=== PATIENT | female | born 1950 | race Caucasian/White ===

== ENCOUNTER 2016-11-24 16:27 | Inpatient (IN) | payer MEDICARE ==
[~2016-11-24] VITALS: Ht 157.5 cm; Wt 120.0 kg
[2016-11-24] VITALS (11 sets, daily range): BP systolic 156–199; BP diastolic 80–96; PULSE 98–116; RESP 20; TEMP 98.2–98.9; O2SAT 92–95
--- NOTE | 2016-11-24 16:39 | PD ---
HPI Chief Complaint: Respiratory Symptoms Time Seen by Provider: 16:39 Travel History International Travel<30 days: No Contact w/Intl Traveler<30days: No Traveled to known affect area: No History of Present Illness HPI Patient is a 66-year-old female with hx of asthma, who presents to emergency room complaints of cough, congestion and shortness of breath for the past 8 days. Patient reports that she came to [place] from [place] in the beginning of month, reports that for the past 8 days, she has noticed increased sinus congestion with postnasal drip and cough. Patient reports that her cough was initially dry, reports that now her cough is productive with thick green sputum. Patient reports that she follow-up in the outpatient clinic a few days ago and was started on Keflex, Medrol Dosepak as well as albuterol breathing treatments, reports that she has had no relief with these antibiotics. Patient went back to the clinic today, and x-ray test was obtained which showed a left lower lobe infiltrate. Patient was sent to the emergency room for further evaluation of symptoms. Of note, patient reports that a few other people at their condo are sick as well. Reports that they recently looks at the air filter and reports that it was caked in dust. Reports concern that this may have caused her asthma exacerbation. Patient with no fevers or chills at this time. Patient reports that when she coughs, her chest does hurt from coughing so much. Patient does have history of pulmonary embolism secondary to factor V Leiden disease, patient reports that she is on Coumadin, her INR at the end of October was 2.8. Patient with no other complaints at this time. PFSH Past Medical History Hx Anticoagulant Therapy: Yes (COUMADIN) Cardiovascular Problems: Yes (HTN) Respiratory: Yes (ASTHMA; HX PE) ?: Not Past Surgical History Gynecologic Surgery: Yes (tubal ligation) Other Surgery: Yes (ENT surgeries in the past) Family History Family History: Negative Social History Alcohol Use: No Tobacco Use: No Substance Use: No Allergies-Medications (Allergen,Severity, Reaction): Coded Allergies: Bactrim (Verified Allergy, Severe, SEVERE HIVES, 11/24/16) HMG-CoA Reductase Inhibitors (Verified Allergy, Severe, MUSCLE WEAKNESS, ) Niacin (Verified Allergy, Severe, HIVES, 11/24/16) Demerol (Verified Adverse Reaction, Intermediate, NAUSEA, 11/24/16) Reported Meds & Prescriptions Reported Meds & Active Scripts Active Reported Vitamin C 500-400 mg-Unit (Vitamins C & E) 1 Cap Cap 1 Cap PO BID Ventolin Hfa 18 GM Inh (Albuterol Sulfate) 90 Mcg/Act Aer 2 Puff INH Q4-6H PRN Advair Diskus Inh (Fluticasone-Salmeterol Inh) 100-50 Mcg/Blist Aer 1 Puff INH BID Rinse mouth after use. Montelukast (Montelukast Sodium) 10 Mg Tab 10 Mg PO HS Pantoprazole (Pantoprazole Sodium) 40 Mg Tab 40 Mg PO BID Warfarin 4 Mg Tab 4 Mg PO DAILY Sertraline (Sertraline HCl) 100 Mg Tab 100 Mg PO DAILY Amlodipine (Amlodipine Besylate) 5 Mg Tab 5 Mg PO DAILY Losartan (Losartan Potassium) 50 Mg Tab 50 Mg PO DAILY Duoneb (Ipratropium-Albuterol Neb) 0.5-2.5 Mg/3 Ml Neb 1 Nebule INH Q4HR NEB Benzonatate 200 Mg Cap 200 Mg PO TID PRN Medrol Dosepak (Methylprednisolone) 4 Mg Dspk 4 Mg PO DIRECTED Per Pharmacist direction Cefuroxime (Cefuroxime Axetil) 500 Mg Tab 500 Mg PO BID Review of Systems General / Constitutional: No: Fever, Chills Eyes: No: Visual changes HENT: No: Headaches Cardiovascular: No: Chest Pain or Discomfort, Palpitations, Irregular Rhythm Respiratory: Positive: Cough, Shortness of Breath, Wheezing Gastrointestinal: No: Nausea, Vomiting, Abdominal Pain Genitourinary: No: Dysuria Musculoskeletal: No: Pain Skin: No Rash Neurologic: No: Weakness, Dizziness Psychiatric: No: Depression Endocrine: No: Polydipsia Hematologic/Lymphatic: No: Easy Bruising Physical Exam Narrative GENERAL: Patient in moderate distress SKIN: Warm and dry. HEAD: Atraumatic. Normocephalic. EYES: No injection or drainage. ENT: No nasal bleeding or discharge. Mucous membranes pink and moist. NECK: Trachea midline. No JVD. CARDIOVASCULAR: Regular rate and rhythm. Positive 3/6 systolic murmur RESPIRATORY: No accessory muscle use. Patient with scattered wheezing to bilateral upper and lower lungs GASTROINTESTINAL: Abdomen soft, non-tender, nondistended. Hepatic and splenic margins not palpable. MUSCULOSKELETAL: No obvious deformities. No clubbing. No cyanosis. No edema. NEUROLOGICAL: Awake and alert. No obvious cranial nerve deficits. Motor grossly within normal limits. Normal speech. PSYCHIATRIC: Appropriate mood and affect; insight and judgment normal. Data Data Last Documented VS Vital Signs Date Time Temp Pulse Resp B/P Pulse Ox O2 Delivery O2 Flow Rate FiO2 11/24/16 18:14 104 20 95 Room Air 11/24/16 18:14 187/87 11/24/16 17:00 21 11/24/16 16:28 98.9 Orders Electrocardiogram (11/24/16 16:45) Complete Blood Count With Diff (11/24/16 16:45) Comprehensive Metabolic Panel (11/24/16 16:45) Influenzae A/B Antigen (11/24/16 16:45) Urinalysis - C+S If Indicated (11/24/16 16:45) Blood Culture (11/24/16 16:45) Chest, Single Ap (11/24/16 16:45) Ecg Monitoring (11/24/16 16:45) Iv Access Insert/Monitor (11/24/16 16:45) Oximetry (11/24/16 16:45) Albuterol-Ipratropium Neb (Duoneb Neb) (11/24/16 16:45) Methylprednisolone So Succ Inj (Solumedr (11/24/16 16:45) Guaifen-Cod 200-20 Mg/10ml Liq (Robituss (11/24/16 16:45) Sodium Chlor 0.9% 1000 Ml Inj (Ns 1000 M (11/24/16 16:45) Prothrombin Time / Inr (Pt) (11/24/16 16:47) Act Partial Throm Time (Ptt) (11/24/16 16:47) Ct Pulmonary Angiogram (11/24/16 17:43) Ceftriaxone Inj (Rocephin Inj) (11/24/16 17:45) Azithromycin Inj (Zithromax Inj) (11/24/16 17:45) Albuterol Neb (Albuterol Neb) (11/24/16 18:00) Acetaminophen (Tylenol) (11/24/16 18:15) Iohexol 350 Inj (Omnipaque 350 Inj) (11/24/16 18:30) Magnesium Sulfate 1 Gm Premix (Magnesium (11/24/16 19:15) Hydralazine Inj (Apresoline Inj) (11/24/16 19:30) Labs Laboratory Tests Test 11/24/16 17:00 White Blood Count 19.5 TH/MM3 Red Blood Count 4.47 MIL/MM3 Hemoglobin 12.6 GM/DL Hematocrit 37.9 % Mean Corpuscular Volume 84.7 FL Mean Corpuscular Hemoglobin 28.2 PG Mean Corpuscular Hemoglobin 33.3 % Concent Red Cell Distribution Width 12.9 % Platelet Count 366 TH/MM3 Mean Platelet Volume 7.4 FL Neutrophils (%) (Auto) 90.5 % Lymphocytes (%) (Auto) 5.7 % Monocytes (%) (Auto) 3.5 % Eosinophils (%) (Auto) 0.0 % Basophils (%) (Auto) 0.3 % Neutrophils # (Auto) 17.6 TH/MM3 Lymphocytes # (Auto) 1.1 TH/MM3 Monocytes # (Auto) 0.7 TH/MM3 Eosinophils # (Auto) 0.0 TH/MM3 Basophils # (Auto) 0.1 TH/MM3 CBC Comment AUTO DIFF Differential Total Cells 100 Counted Neutrophils % (Manual) 69 % Band Neutrophils % 20 % Lymphocytes % 7 % Monocytes % 3 % Basophils % 1 % Neutrophils # (Manual) 17.4 TH/MM3 Differential Comment FINAL DIFF MANUAL Platelet Estimate NORMAL Platelet Morphology Comment NORMAL Red Cell Morphology Comment NORMAL Prothrombin Time 23.4 SEC Prothromb Time International 2.1 RATIO Ratio Activated Partial 42.9 SEC Thromboplast Time Sodium Level 142 MEQ/L Potassium Level 4.0 MEQ/L Chloride Level 106 MEQ/L Carbon Dioxide Level 27.2 MEQ/L Anion Gap 9 MEQ/L Blood Urea Nitrogen 11 MG/DL Creatinine 0.93 MG/DL Estimat Glomerular Filtration 60 ML/MIN Rate Random Glucose 124 MG/DL Calcium Level 8.8 MG/DL Total Bilirubin 0.6 MG/DL Aspartate Amino Transf 36 U/L (AST/SGOT) Alanine Aminotransferase 45 U/L (ALT/SGPT) Alkaline Phosphatase 90 U/L Total Protein 8.0 GM/DL Albumin 3.5 GM/DL MDM Medical Decision Making Medical Screen Exam Complete: Yes Emergency Medical Condition: Yes Interpretation(s) EKG at 1637: Sinus tachycardia at 102 bpm, QT/QTc 318/391, nonspecific t wave changes Vital Signs Date Time Temp Pulse Resp B/P Pulse Ox O2 Delivery O2 Flow Rate FiO2 11/24/16 16:44 103 20 94 Room Air 11/24/16 16:28 98.9 98 20 156/96 94 CBC & BMP Diagram 11/24/16 17:00 Differential Diagnosis Asthma exacerbation, pneumonia, influenza, pneumothorax, PE Narrative Course Patient is a 66-year-old female who presents to emergency room with complaints of 8 days of cough, congestion, reports that she has been on Keflex since as well as Medrol Dosepak, reports no relief of symptoms. Patient did follow-up with the clinic today and it was noted the patient did have a left lower lobe pneumonia, patient was instructed to come to emergency for evaluation. Patient was placed on senior account clerk upon arrival to emergency room. EKG obtained. Patient is mildly tachycardia with heart rate at 103. Patient is wheezing and coughing exam. Plan to place IV, CBC, CMP, x-ray of the chest as well as influenza ordered for patient. Patient was ordered IV steroids as well as neb treatments and a dose of Robitussin for symptomatic relief. CBC & BMP Diagram 11/24/16 17:[address] angiogram: 1. very prominent pulmonary arteries centrally suggesting pulmonary hypertension 2. Minimal patchy areas disease both lungs 3. There is no evidence of central pulmonary emboli Patient reevaluated, patient feeling "the same." Patient with continued wheezing on exam despite 6 neb treatments. Patient will require observation at this time case reviewed with Dr Peña who accepts pt to service for obs Diagnosis Primary Impression: Asthma with acute exacerbation Qualified Code: J45.41 - Moderate persistent asthma with acute exacerbation Admitting Information Admitting Physician Requests: Observation Twila Lopez DO Nov 24, 2016 16:39
[2016-11-24] MEDS ORDERED: CEFU1TAB20 PO (16:43)
[2016-11-24] MEDS ORDERED: IPRASOL INH (16:43)
[2016-11-24] MEDS ORDERED: MEDR4PAK PO (16:43)
[2016-11-24] MEDS ORDERED: BENZ1CAP34 PO (16:43)
[2016-11-24] MEDS ORDERED: ALBU0.63 NEB (16:43)
[2016-11-24] MEDS ORDERED: guaiFENesin/CODEINE SYRUP 200 MG/20 MG/10 ML CUP PO ONE (16:45)
[2016-11-24] MEDS ORDERED: methylPREDNISolone SOD SUCC 125 MG/2 ML VIAL IV ONE (16:45)
[2016-11-24] MEDS ORDERED: SODIUM CHLOR 0.9% 1000 ML INJ 1,000 ML IV ONE (16:45)
[2016-11-24] MEDS ORDERED: VITACAP32 PO (16:51)
[2016-11-24] MEDS ORDERED: WARF-20 PO (16:51)
[2016-11-24] MEDS ORDERED: VENTAER INH (16:51)
[2016-11-24] MEDS ORDERED: MONT10TA4 PO (16:51)
[2016-11-24] MEDS ORDERED: AMLO5TAB2 PO (16:51)
[2016-11-24] MEDS ORDERED: SERT-129 PO (16:51)
[2016-11-24] MEDS ORDERED: PANT40TA3 PO (16:51)
[2016-11-24] MEDS ORDERED: LOSA50TA PO (16:51)
[2016-11-24] MEDS ORDERED: ADVA100A INH (16:51)
[2016-11-24] MEDS: RESP: ALBUTEROL 2.5 MG/IPRATROPIUM 0.5 MG NEB (SCH) INH ×3 (16:58→17:04)
[2016-11-24 17:11] LABS: AUTOMATED NEUTROPHIL # 17.6 TH/MM3 (1.8-7.7); BASOPHIL # 0.1 TH/MM3 (0-0.2); BASOPHIL % 0.3 % (0.0-2.0); HEMATOCRIT 37.9 % (35.0-46.0); LYMPH % 5.7 % (9.0-44.0); LYMPHOCYTE # 1.1 TH/MM3 (1.0-4.8); MEAN CELL VOLUME 84.7 FL (80.0-100.0); MEAN CORPUSCULAR HEMOGLOBIN 28.2 PG (27.0-34.0); MEAN CORPUSCULAR HGB CONC 33.3 % (32.0-36.0); MONO % 3.5 % (0.0-8.0); NEUT % 90.5 % (16.0-70.0); PLATELET COUNT 366 TH/MM3 (150-450); RED BLOOD COUNT 4.47 MIL/MM3 (4.00-5.30); RED CELL DISTRIBUTION WIDTH 12.9 % (11.6-17.2); WHITE BLOOD COUNT 19.5 TH/MM3 (4.0-11.0)
--- NOTE | 2016-11-24 17:11 | RADHPO ---
EXAM DATE/TIME: 11/24/2016 16:52 [facility] COMPARISON: No previous studies available for comparison. INDICATIONS : Cough and congestion for eight days. MEDICAL HISTORY : Hypertension. SURGICAL HISTORY : None. ENCOUNTER: Initial ACUITY: 1 week PAIN SCORE: 0/10 LOCATION: Bilateral chest FINDINGS: A single view of the chest demonstrates the lungs to be symmetrically aerated without evidence of mas s, infiltrate or effusion. The cardiomediastinal contours are unremarkable. Osseous structures are intact. CONCLUSION: No acute disease. Jc Alberts MD FACR on November 24, 2016 at 17:09 Board Certified Radiologist. This report was verified electronically.
[2016-11-24 17:21] LABS: CHLORIDE 106 MEQ/L (98-107); SODIUM (NA) 142 MEQ/L (136-145)
[2016-11-24 17:24] LABS: ANION GAP 9 MEQ/L (5-15); BICARBONATE 27.2 MEQ/L (21.0-32.0); HEMO FLAGS AUTO DIFF
[2016-11-24 17:25] LABS: BLOOD UREA NITROGEN 11 MG/DL (7-18)
[2016-11-24 17:27] LABS: ALT (GPT) 45 U/L (10-53); APTT (PATIENT) 42.9 SEC (24.3-30.1); INTERNATIONAL NORMALIZED RATIO 2.1 RATIO; PROTHROMBIN TIME - PATIENT 23.4 SEC (9.8-11.6)
[2016-11-24 17:28] LABS: AST (GOT) 36 U/L (15-37); GLOMERULAR FILTRATION RATE 60 ML/MIN (>89)
[2016-11-24 17:29] LABS: TOTAL BILIRUBIN ADULT 0.6 MG/DL (0.2-1.0)
[2016-11-24 17:30] LABS: ALKALINE PHOSPHATASE 90 U/L (45-117)
[2016-11-24 17:41] LABS: BANDS 20 % (0-6); BASOPHILS 1 % (0-2); NEUTROPHIL # MANUAL DIFF 17.4 TH/MM3 (1.8-7.7); PLATELET ESTIMATE SMEAR NORMAL (NORMAL); PLATELET MORPHOLOGY NORMAL (NORMAL); POLYS (SEG NEUTROPHILS) 69 % (16-70); SCAN/DIFF FINAL DIFF MANUAL; WBC DIFF SAMPLE 100
[2016-11-24] MEDS ORDERED: cefTRIAXone INJ 1,000 MG in SODIUM CHLORIDE 0.9% INJ 100 ML IV ONE (17:45)
[2016-11-24] MEDS ORDERED: AZITHROMYCIN INJ 500 MG in SODIUM CHLOR 0.9% 250 ML INJ 250 ML IV ONE (17:45)
[2016-11-24] MEDS: RESP: ALBUTEROL 2.5 MG/3 ML NEB (SCH) INH ×2 (18:00→18:18)
[2016-11-24] MEDS ORDERED: ACETAMINOPHEN 325 MG TAB PO ONE (18:15)
[2016-11-24] MEDS ORDERED: IOHEXOL 350 MG/ML 10 ML VIAL (for RAD DIAG) IV ONE (18:30)
--- NOTE | 2016-11-24 18:43 | RADHPO ---
EXAM DATE/TIME: 11/24/2016 18:22 [facility] COMPARISON: No previous studies available for comparison. INDICATIONS : Shortness of breath today. IV CONTRAST: 74 cc Omnipaque 350 (iohexol) IV RADIATION DOSE: 21.42 CTDIvol (mGy) MEDICAL HISTORY : Chronic obstructive pulmonary disease. Hypertension. SURGICAL HISTORY : Tubal ligation. ENCOUNTER: Initial ACUITY: 1 day PAIN SCALE: 0/10 LOCATION: Bilateral chest TECHNIQUE: Volumetric scanning of the chest was performed using a pulmonary embolism protocol MIP images were re constructed. Using automated exposure control and adjustment of the mA and/or kV according to patien t size, radiation dose was kept as low as reasonably achievable to obtain optimal diagnostic quality images. FINDINGS: Patchy air space disease is seen in both the right and left lung. There is no axillary adenopathy. There is no mediastinal adenopathy. There is no evidence of centra l pulmonary emboli. The heart is minimally enlarged. Pulmonary arteries are enlarged centrally suggesting pulmonary zack ry hypertension. Portion of liver and spleen identified are free of focal defects. CONCLUSION: 1. Very prominent pulmonary arteries centrally suggesting pulmonary hypertension. 2. Minimal patchy air space disease in both lungs. Jc Alberts MD FACR on November 24, 2016 at 18:38 Board Certified Radiologist. This report was verified electronically.
[2016-11-24] MEDS ORDERED: ONDANSETRON HCL 4 MG/2 ML VIAL IVP PRN (19:15)
[2016-11-24] MEDS ORDERED: ACETAMINOPHEN 325 MG TAB PO PRN (19:15)
[2016-11-24] MEDS ORDERED: MAGNESIUM SULFATE 1 GM PREMIX 100 ML IV ONE (19:15)
[2016-11-24] MEDS ORDERED: BISACODYL 10 MG SUPP PR PRN (19:15)
[2016-11-24] MEDS ORDERED: hydrALAZINE HCL 20 MG/ML VIAL IV PUSH ONE (19:30)
[2016-11-24] MEDS: BUDESONIDE-FORMOTEROL 160/4.5 MCG INHALER INH SCH (20:58)
[2016-11-24] MEDS: PANTOPRAZOLE SOD 40 MG DELAYED RELEASE TAB PO SCH (20:59)
[2016-11-24] MEDS: SODIUM CHLORIDE 0.9% FLUSH 5 ML FLUSH FLUSH SCH (20:59)
[2016-11-24] MEDS: MONTELUKAST SODIUM 10 MG TAB PO SCH (20:59)
[2016-11-24] MEDS: RESP: ALBUTEROL 2.5 MG/IPRATROPIUM 0.5 MG NEB (SCH) NEB (21:04)
[2016-11-24] MEDS ORDERED: WARFARIN SOD 4 MG TAB PO ONE (21:15)
[2016-11-24] MEDS: guaiFENesin E.R. 600 MG TAB PO SCH (21:23)
[2016-11-24 22:47] LABS: BLOOD, URINE SMALL (NEG); GLUCOSE,URINE NEG (NEG); KETONE, URINE NEG (NEG); NITRITE,URINE NEG (NEG)
[2016-11-24 22:52] LABS: METHOD OF COLLECTION CLEAN CATCH; URINE COLOR STRAW (YELLW/STRAW)
[2016-11-24 22:55] LABS: RBC, URINE 0-3 /hpf (0-3); SQUAMOUS EPITHELIAL CELL URINE 0-2 /hpf (0-5); WBC, URINE 0-2 /hpf (0-5)
[2016-11-24 22:56] LABS: COMMENT (UR) CULT NOT INDICATED; CULTURE IF INDICATED CULT NOT INDICATED
[2016-11-25] VITALS (8 sets, daily range): BP systolic 122–168; BP diastolic 80–88; PULSE 94–109; RESP 18–24; TEMP 96.7–99; O2SAT 91–95
[2016-11-25] MEDS: methylPREDNISolone SOD SUCC 40 MG/1 ML VIAL IV PUSH SCH ×4 (00:12→18:26)
[2016-11-25] MEDS: SODIUM CHLORIDE 0.9% FLUSH 5 ML FLUSH FLUSH PRN ×2 (00:12→06:30)
[2016-11-25] MEDS: BENZONATATE 100 MG CAP PO PRN ×2 (00:17→21:30)
[2016-11-25] MEDS: ACETAMINOPHEN/HYDROcodone 325 MG/5 MG TAB PO PRN (05:00)
[2016-11-25] MEDS: RESP: ALBUTEROL 2.5 MG/IPRATROPIUM 0.5 MG NEB (SCH) NEB ×4 (07:32→20:15)
[2016-11-25] MEDS ORDERED: WARFARIN SOD 4 MG TAB PO SCH ×2 (09:00→16:00)
[2016-11-25 09:24] LABS: BASOPHIL % 0.1 % (0.0-2.0); EOSINOPHIL % 0.1 % (0.0-4.0); HEMATOCRIT 35.6 % (35.0-46.0); LYMPH % 5.9 % (9.0-44.0); LYMPHOCYTE # 1.2 TH/MM3 (1.0-4.8); MEAN CELL VOLUME 85.1 FL (80.0-100.0); MEAN CORPUSCULAR HEMOGLOBIN 29.1 PG (27.0-34.0); MEAN CORPUSCULAR HGB CONC 34.2 % (32.0-36.0); MONO % 2.3 % (0.0-8.0); NEUT % 91.6 % (16.0-70.0); PLATELET COUNT 330 TH/MM3 (150-450); RED BLOOD COUNT 4.18 MIL/MM3 (4.00-5.30); RED CELL DISTRIBUTION WIDTH 12.9 % (11.6-17.2); WHITE BLOOD COUNT 19.7 TH/MM3 (4.0-11.0)
[2016-11-25 09:37] LABS: HEMO FLAGS AUTO DIFF
[2016-11-25 09:39] LABS: PROTHROMBIN TIME - PATIENT 22.2 SEC (9.8-11.6)
[2016-11-25] MEDS: PANTOPRAZOLE SOD 40 MG DELAYED RELEASE TAB PO SCH ×2 (10:02→21:01)
[2016-11-25] MEDS: amLODIPine BESYLATE 5 MG TAB PO SCH (10:02)
[2016-11-25] MEDS: LOSARTAN 50 MG TAB PO SCH (10:02)
[2016-11-25] MEDS: SERTRALINE HCL 100 MG TAB PO SCH (10:02)
[2016-11-25] MEDS: BUDESONIDE-FORMOTEROL 160/4.5 MCG INHALER INH SCH ×2 (10:02→21:01)
[2016-11-25] MEDS: guaiFENesin E.R. 600 MG TAB PO SCH ×2 (10:02→21:01)
[2016-11-25] MEDS: SODIUM CHLORIDE 0.9% FLUSH 5 ML FLUSH FLUSH SCH ×2 (10:02→21:00)
[2016-11-25 10:04] LABS: CHLORIDE 105 MEQ/L (98-107); POTASSIUM 3.9 MEQ/L (3.5-5.1); SODIUM (NA) 143 MEQ/L (136-145)
[2016-11-25] MEDS: ACETAMINOPHEN/HYDROcodone 325 MG/10 MG TAB PO PRN (10:04)
[2016-11-25 10:08] LABS: ANION GAP 11 MEQ/L (5-15); BICARBONATE 27.2 MEQ/L (21.0-32.0); BLOOD UREA NITROGEN 13 MG/DL (7-18)
[2016-11-25 10:11] LABS: ALT (GPT) 43 U/L (10-53); GLOMERULAR FILTRATION RATE 67 ML/MIN (>89)
[2016-11-25 10:12] LABS: AST (GOT) 34 U/L (15-37); TOTAL BILIRUBIN ADULT 0.4 MG/DL (0.2-1.0)
[2016-11-25 10:14] LABS: ALKALINE PHOSPHATASE 87 U/L (45-117)
[2016-11-25 10:24] LABS: BANDS 13 % (0-6); NEUTROPHIL # MANUAL DIFF 18.5 TH/MM3 (1.8-7.7); POLYS (SEG NEUTROPHILS) 81 % (16-70); WBC DIFF SAMPLE 100
[2016-11-25 10:25] LABS: PLATELET ESTIMATE SMEAR NORMAL (NORMAL); PLATELET MORPHOLOGY NORMAL (NORMAL); SCAN/DIFF FINAL DIFF MANUAL
--- NOTE | 2016-11-25 13:28 | EKG ---
Date Performed: 11/24/2016 Time Performed: 16:37:54 PTAGE: 66 years EKG: Sinus tachycardia Inferior and anterior T wave changes are nonspecific Borderline ECG NO PREVIOUS TRACING DOCTOR: Asher Alves Interpretating Date/Time 11/25/2016 13:27:29
--- NOTE | 2016-11-25 15:08 | HHI.HP ---
[facility]Staff Admission Diagnosis Asthma exacerbation Diagnoses: Chief Complaint: Short of breath Travel History International Travel<30 Days: No Contact w/Intl Traveler <30 Da: No Traveled to Known Affected Are: No History of Present Illness Patient is a 66-year-old female with a history of asthma and recurrent bronchitis who came to the emergency room after about 8 days of increasing dyspnea on exertion and shortness of breath and productive cough. Patient was seen in outpatient urgent care a few days ago and given cefuroxime, steroids and nebulizer treatments. Patient noted that she continued to get worse and came to the emergency room for the same. The patient was given IV antibiotics as well as bronchodilators and felt better. Chest x-ray was done and does show some bilateral patchy although worse on the left side infiltrates concerning for pneumonia on my review. For these reasons the patient has been recommended for admission Review of Systems Constitutional: DENIES: Diaphoretic episodes, Fatigue, Fever, Weight gain, Weight loss, Chills, Dizziness, Change in appetite, Night Sweats Endocrine: DENIES: Abnorml menstrual pattern, Heat/cold intolerance, Polydipsia , Polyuria, Polyphagia Eyes: DENIES: Blurred vision, Diplopia, Eye inflammation, Eye pain, Vision loss , Photosensitivity, Double Vision Ears, nose, mouth, throat: DENIES: Tinnitus, Hearing loss, Vertigo, Nasal discharge, Oral lesions, Throat pain, Hoarseness, Ear Pain, Running Nose, Epistaxis, Sinus Pain, Toothache, Odynophagia Respiratory: COMPLAINS OF: Wheezing, Shortness of breath, DENIES: Apneas, Cough, Snoring, Hemoptysis, Sputum production Cardiovascular: COMPLAINS OF: Dyspnea on Exertion, DENIES: Chest pain, Palpitations, Syncope, PND, Lower Extremity Edema, Orthopnea, Claudication Gastrointestinal: DENIES: Abdominal pain, Black stools, Bloody stools, Constipation, Diarrhea, Nausea, Vomiting, Difficulty Swallowing, Anorexia Genitourinary: DENIES: Abnormal vaginal bleeding, Dysmenorrhea, Dyspareunia, Sexual dysfunction, Urinary frequency, Urinary incontinence, Urgency, Hematuria , Dysuria, Nocturia, Vaginal discharge Musculoskeletal: DENIES: Joint pain, Muscle aches, Stiffness, Joint Swelling, Back pain, Neck pain Integumentary: DENIES: Abnormal pigmentation, Pruritus, Rash, Nail changes, Breast masses, Breast skin changes, Nipple discharge Hematologic/lymphatic: DENIES: Bruising, Lymphadenopathy Immunologic/allergic: DENIES: Eczema, Urticaria Neurologic: DENIES: Abnormal gait, Headache, Localized weakness, Paresthesias, Seizures, Speech Problems, Tremor, Poor Balance Psychiatric: DENIES: Anxiety, Confusion, Mood changes, Depression, Hallucinations, Agitation, Suicidal Ideation, Homicidal Ideation, Delusions Past Family Social History Past Medical History Bronchitis Recurrent embolism Hypertension Past Surgical History Tubal ligation Ear Nose and throat surgeries Reported Medications Reviewed and the medical record, was given cefuroxime mean an urgent care on Allergies: Coded Allergies: Bactrim (Verified Allergy, Severe, SEVERE HIVES, 11/24/16) HMG-CoA Reductase Inhibitors (Verified Allergy, Severe, MUSCLE WEAKNESS, ) Niacin (Verified Allergy, Severe, HIVES, 11/24/16) Demerol (Verified Adverse Reaction, Intermediate, NAUSEA, 11/24/16) Active Ordered Medications Reviewed in the medical record Family History Both of her parents had been smokers, mother from lung cancer, sister has breast cancer Social History Never had any tobaccoism, no alcohol, visiting from [place], multiple sick contacts in her current condo Physical Exam Vital Signs Vital Signs Date Time Temp Pulse Resp B/P Pulse Ox O2 Delivery O2 Flow Rate FiO2 11/25/16 12:00 99.0 99 20 149/81 92 11/25/16 11:41 18 11/25/16 08:00 96.7 94 18 168/88 94 11/25/16 07:34 91 21 11/25/16 05:04 98.9 94 24 153/80 92 11/25/16 01:26 98.3 109 24 152/88 92 11/25/16 01:00 103 11/25/16 00:00 92 Room Air 11/24/16 22:45 98.2 108 20 175/81 94 Room Air 11/24/16 21:04 92 21 11/24/16 21:00 108 20 171/90 94 Room Air 11/24/16 20:04 113 20 176/80 94 Room Air 11/24/16 19:48 114 20 196/85 93 Room Air 11/24/16 19:21 116 20 199/87 94 Room Air 11/24/16 19:05 113 20 94 Room Air 11/24/16 19:05 98.2 113 20 199/93 94 Room Air 11/24/16 18:14 104 20 95 Room Air 11/24/16 18:14 104 20 187/87 95 Room Air 11/24/16 17:11 99 20 177/83 93 Room Air 11/24/16 17:00 92 21 11/24/16 16:44 103 20 94 Room Air 11/24/16 16:28 98.9 98 20 156/96 94 Physical Exam GENERAL: This is a well-nourished, well-developed patient, in no apparent distress. SKIN: No rashes, ecchymoses or lesions. Cool and dry. HEAD: Atraumatic. Normocephalic. No temporal or scalp tenderness. EYES: Pupils equal round and reactive. Extraocular motions intact. No scleral icterus. No injection or drainage. ENT: Nose without bleeding, purulent drainage or septal hematoma. Throat without erythema, tonsillar hypertrophy or exudate. Uvula midline. Airway patent. NECK: Trachea midline. No JVD or lymphadenopathy. Supple, nontender, no meningeal signs. CARDIOVASCULAR: Regular rate and rhythm without murmurs, gallops, or rubs. RESPIRATORY: Decreased breath sounds bilaterally, no appreciable wheezes or rhonchi GASTROINTESTINAL: Abdomen soft, non-tender, nondistended. No hepato-splenomegaly , or palpable masses. No guarding. MUSCULOSKELETAL: Extremities without clubbing, cyanosis, or edema. No joint tenderness, effusion, or edema noted. No calf tenderness. Negative Homans sign bilaterally. NEUROLOGICAL: Awake and alert. Cranial nerves II through XII intact. Motor and sensory grossly within normal limits. Five out of 5 muscle strength in all muscle groups. Normal speech. Laboratory Laboratory Tests Test 11/24/16 11/24/16 11/25/16 17:00 22:32 08:21 White Blood Count 19.5 19.7 Red Blood Count 4.47 4.18 Hemoglobin 12.6 12.2 Hematocrit 37.9 35.6 Mean Corpuscular Volume 84.7 85.1 Mean Corpuscular Hemoglobin 28.2 29.1 Mean Corpuscular Hemoglobin 33.3 34.2 Concent Red Cell Distribution Width 12.9 12.9 Platelet Count 366 330 Mean Platelet Volume 7.4 8.0 Neutrophils (%) (Auto) 90.5 91.6 Lymphocytes (%) (Auto) 5.7 5.9 Monocytes (%) (Auto) 3.5 2.3 Eosinophils (%) (Auto) 0.0 0.1 Basophils (%) (Auto) 0.3 0.1 Neutrophils # (Auto) 17.6 18.0 Lymphocytes # (Auto) 1.1 1.2 Monocytes # (Auto) 0.7 0.5 Eosinophils # (Auto) 0.0 0.0 Basophils # (Auto) 0.1 0.0 CBC Comment AUTO DIFF AUTO DIFF Differential Total Cells 100 100 Counted Neutrophils % (Manual) 69 81 Band Neutrophils % 20 13 Lymphocytes % 7 5 Monocytes % 3 1 Basophils % 1 Neutrophils # (Manual) 17.4 18.5 Differential Comment FINAL DIFF FINAL DIFF MANUAL MANUAL Platelet Estimate NORMAL NORMAL Platelet Morphology Comment NORMAL NORMAL Red Cell Morphology Comment NORMAL Prothrombin Time 23.4 22.2 Prothromb Time International 2.1 2.0 Ratio Activated Partial 42.9 Thromboplast Time Sodium Level 142 143 Potassium Level 4.0 3.9 Chloride Level 106 105 Carbon Dioxide Level 27.2 27.2 Anion Gap 9 11 Blood Urea Nitrogen 11 13 Creatinine 0.93 0.85 Estimat Glomerular Filtration 60 67 Rate Random Glucose 124 144 Calcium Level 8.8 8.9 Total Bilirubin 0.6 0.4 Aspartate Amino Transf 36 34 (AST/SGOT) Alanine Aminotransferase 45 43 (ALT/SGPT) Alkaline Phosphatase 90 87 Total Protein 8.0 7.8 Albumin 3.5 3.3 Urine Collection Type CLEAN CATCH Urine Color STRAW Urine Turbidity CLEAR Urine pH 6.0 Urine Specific [place] 1.024 Urine Protein NEG Urine Glucose (UA) NEG Urine Ketones NEG Urine Occult Blood SMALL Urine Nitrite NEG Urine Bilirubin NEG Urine Leukocyte Esterase NEG Urine RBC 0-3 Urine WBC 0-2 Urine Squamous Epithelial 0-2 Cells Microscopic Urinalysis Comment CULT NOT INDICATED Basophilic Stippling FAINT Date/Time Procedure Status Source Growth 11/24/16 17:05 Aerobic Blood Culture - Preliminary Resulted Blood Peripheral NO GROWTH IN 1 DAY 11/24/16 17:05 Anaerobic Blood Culture - Preliminary Resulted Blood Peripheral NO GROWTH IN 1 DAY 11/24/16 17:04 Influenza Types A,B Antigen (RUBÉN) - Final Complete Nasal Washing NEGATIVE FOR FLU A AND B ANTIGEN.... Result Diagram: 11/25/16 0821 11/25/16 [address] Angiography 11/24/16 1743 Signed Impressions: Service Date/Time: Thursday, November 24, 2016 18:22 - CONCLUSION: 1. Very prominent pulmonary arteries centrally suggesting pulmonary hypertension. 2. Minimal patchy air space disease in both lungs. Jc Alberts MD FACR Chest X-Ray 11/24/16 1645 Signed Impressions: Service Date/Time: Thursday, November 24, 2016 16:52 - CONCLUSION: No acute disease. Jc Alberts MD FACR Assessment and Plan Problem List: (1) Asthma with acute exacerbation ICD Code: J45.901 Status: Acute Plan: With failed outpatient therapy need for IV antibiotics and IV steroids We'll continue with bronchodilators, steroids. Continue with IV antibiotics with pneumonia on exam and clinically. Continue with close observation (2) History of pulmonary embolus (PE) ICD Code: Z86.711 Status: Acute Plan: Patient has been Coumadin due to hypercoagulable syndrome. Her goals for INR have been 2.5 per her primary care doctor. We'll give 5 mg of warfarin tonight Discussed Condition With Patient Physician Certification 2 Midnight Certification Type: Admission for Inpatient Services Order for Inpatient Services The services are ordered in accordance with Medicare regulations or non- Medicare payer requirements, as applicable. In the case of services not specified as inpatient-only, they are appropriately provided as inpatient services in accordance with the 2-midnight benchmark. Estimated LOS (days): 3 3 days is the estimated time the patient will need to remain in the hospital, assuming treatment plan goals are met and no additional complications. Post-Hospital Plan: Home (3) Problem Qualifiers (1) Asthma with acute exacerbation: Qualified Code: J45.41 - Moderate persistent asthma with acute exacerbation Laura Agudelo MD Nov 25, 2016 15:08
[2016-11-25] MEDS ORDERED: WARFARIN SOD 5 MG TAB PO SCH (16:00)
[2016-11-25] MEDS: AZITHROMYCIN INJ 500 MG in SODIUM CHLOR 0.9% 250 ML INJ 250 ML IV SCH (17:21)
[2016-11-25] MEDS: cefTRIAXone INJ 1,000 MG in SODIUM CHLORIDE 0.9% INJ 100 ML IV SCH (17:22)
[2016-11-25] MEDS: MONTELUKAST SODIUM 10 MG TAB PO SCH (21:01)
[2016-11-26] VITALS (8 sets, daily range): BP systolic 139–164; BP diastolic 87–100; PULSE 83–94; RESP 18–24; TEMP 96.8–98.3; O2SAT 92–96
[2016-11-26] MEDS: methylPREDNISolone SOD SUCC 40 MG/1 ML VIAL IV PUSH SCH ×2 (00:59→06:35)
[2016-11-26] MEDS: ACETAMINOPHEN/HYDROcodone 325 MG/10 MG TAB PO PRN ×2 (02:58→23:22)
[2016-11-26] MEDS: RESP: ALBUTEROL 2.5 MG/IPRATROPIUM 0.5 MG NEB (PRN) NEB ×2 (02:59→23:35)
[2016-11-26] MEDS: RESP: ALBUTEROL 2.5 MG/IPRATROPIUM 0.5 MG NEB (SCH) NEB ×4 (08:10→20:01)
[2016-11-26 08:27] LABS: AUTOMATED NEUTROPHIL # 20.6 TH/MM3 (1.8-7.7); BASOPHIL % 0.1 % (0.0-2.0); EOSINOPHIL # 0.2 TH/MM3 (0-0.4); EOSINOPHIL % 0.8 % (0.0-4.0); HEMATOCRIT 36.7 % (35.0-46.0); LYMPH % 6.7 % (9.0-44.0); LYMPHOCYTE # 1.5 TH/MM3 (1.0-4.8); MEAN CELL VOLUME 86.8 FL (80.0-100.0); MEAN CORPUSCULAR HEMOGLOBIN 28.7 PG (27.0-34.0); MONO % 3.3 % (0.0-8.0); NEUT % 89.1 % (16.0-70.0); PLATELET COUNT 363 TH/MM3 (150-450); RED BLOOD COUNT 4.22 MIL/MM3 (4.00-5.30); RED CELL DISTRIBUTION WIDTH 13.5 % (11.6-17.2); WHITE BLOOD COUNT 23.1 TH/MM3 (4.0-11.0)
[2016-11-26 08:32] LABS: HEMO FLAGS AUTO DIFF
[2016-11-26 09:07] LABS: BANDS 11 % (0-6); METAMYELOCYTES 2 % (0-1); POLYS (SEG NEUTROPHILS) 78 % (16-70); WBC DIFF SAMPLE 100
[2016-11-26 09:08] LABS: PLATELET ESTIMATE SMEAR NORMAL (NORMAL); PLATELET MORPHOLOGY NORMAL (NORMAL); SCAN/DIFF FINAL DIFF MANUAL
[2016-11-26] MEDS: LOSARTAN 50 MG TAB PO SCH (09:47)
[2016-11-26] MEDS: guaiFENesin E.R. 600 MG TAB PO SCH ×2 (09:47→20:29)
[2016-11-26] MEDS: PANTOPRAZOLE SOD 40 MG DELAYED RELEASE TAB PO SCH ×2 (09:47→20:29)
[2016-11-26] MEDS: amLODIPine BESYLATE 5 MG TAB PO SCH (09:47)
[2016-11-26] MEDS: SERTRALINE HCL 100 MG TAB PO SCH (09:48)
[2016-11-26] MEDS: predniSONE 20 MG TAB PO SCH ×2 (09:48→20:29)
[2016-11-26] MEDS: BUDESONIDE-FORMOTEROL 160/4.5 MCG INHALER INH SCH ×2 (09:48→20:30)
[2016-11-26] MEDS: SODIUM CHLORIDE 0.9% FLUSH 5 ML FLUSH FLUSH SCH ×2 (09:50→20:29)
[2016-11-26] MEDS: ACETAMINOPHEN/HYDROcodone 325 MG/5 MG TAB PO PRN (09:56)
[2016-11-26 10:50] LABS: INTERNATIONAL NORMALIZED RATIO 2.5 RATIO; PROTHROMBIN TIME - PATIENT 28.7 SEC (9.8-11.6)
--- NOTE | 2016-11-26 10:55 | HHI.PR ---
Subjective Remarks Patient seen and evaluated today for acute asthma exacerbation. Still working hard to breathe today. Patient without chest pain. Spouse at bedside. This time patient continues to require IV antibiotics, steroids and bronchodilators. INR 2.5 Objective Vitals Vital Signs Date Time Temp Pulse Resp B/P Pulse Ox O2 Delivery O2 Flow Rate FiO2 11/26/16 08:10 93 21 11/26/16 08:00 97.8 83 22 163/100 93 11/26/16 07:00 93 Room Air 11/26/16 04:00 96.8 93 20 151/91 92 11/26/16 00:00 98.3 93 20 158/87 96 11/25/16 20:15 95 21 11/25/16 20:00 97.6 103 18 122/81 94 11/25/16 19:00 95 Room Air 11/25/16 15:33 Room Air 21 11/25/16 12:00 99.0 99 20 149/81 92 11/25/16 11:41 18 I/O 11/25/16 11/25/16 11/25/16 11/26/16 11/26/16 11/26/16 07:00 15:00 23:00 07:00 15:00 23:00 Intake Total 650 ml 320 ml Balance 650 ml 320 ml Intake Oral 650 ml 320 ml # Voids 5 # Bowel Movements 0 Result Diagram: 11/26/16 0730 11/25/16 0821 Objective Remarks GENERAL: This is a well-nourished, well-developed patient, in no apparent distress. CARDIOVASCULAR: Regular rate and rhythm without murmurs, gallops, or rubs. RESPIRATORY: Decreased air flow bilaterally with scattered wheezes GASTROINTESTINAL: Abdomen soft, non-tender, nondistended. Normal active bowel sounds MUSCULOSKELETAL: Extremities without clubbing, cyanosis, or edema. NEURO: Alert & Oriented x4 to person, place, time, situation. Moves all ext x4 A/P Problem List: (1) Asthma with acute exacerbation ICD Code: J45.901 Status: Acute Plan: With pneumonia With failed outpatient therapy and continued need for IV antibiotics and IV steroids We'll continue with bronchodilators, steroids. Continue with IV azithromycin and Rocephin Continue with close observation (2) History of pulmonary embolus (PE) ICD Code: Z86.711 Status: Acute Plan: Patient has been Coumadin due to hypercoagulable syndrome. Her goals for INR have been 2.5 per her primary care doctor. We'll follow while on antibiotics INR 2.5 Problem Qualifiers (1) Asthma with acute exacerbation: Qualified Code: J45.41 - Moderate persistent asthma with acute exacerbation Laura Agudelo MD Nov 26, 2016 10:55
--- NOTE | 2016-11-26 13:00 | EC ---
Study Study Date:11/26/2016 STUDY CONCLUSIONS SUMMARY - Left ventricle: The cavity size was normal. Wall thickness was normal. Systolic function was normal. The estimated ejection fraction was in the range of 55% to 60%. Wall motion was normal; there were no regional wall motion abnormalities. - Tricuspid valve: Mild regurgitation. - Pulmonary arteries: Systolic pressure was mildly increased. If LV function is below 40, please consider prescribing an ACEI or ARB or document rationale for non-use. PROCEDURE DATA STUDY STATUS: Elective. Procedure: Transthoracic echocardiography. Image quality was good. Scanning was performed from the parasternal, apical, and subcostal acoustic windows. Study completion: The patient tolerated the procedure well. Transthoracic echocardiography. M-mode, complete 2D, complete spectral Doppler, and color Doppler. Patient status: Inpatient. CARDIAC ANATOMY LEFT VENTRICLE: The cavity size was normal. Wall thickness was normal. Systolic function was normal. The estimated ejection fraction was in the range of 55% to 60%. Wall motion was normal; there were no regional wall motion abnormalities. AORTIC VALVE: Trileaflet; normal thickness leaflets. Doppler: Transvalvular velocity was within the normal range. There was no stenosis. No regurgitation. AORTA: Aortic root: The aortic root was normal in size. MITRAL VALVE: Structurally normal valve. Doppler: Transvalvular velocity was within the normal range. There was no evidence for stenosis. Trace regurgitation. LEFT ATRIUM: The atrium was normal in size. RIGHT VENTRICLE: The cavity size was normal. Wall thickness was normal. PULMONIC VALVE: Doppler: Transvalvular velocity was within the normal range. There was no evidence for stenosis. No regurgitation. TRICUSPID VALVE: Structurally normal valve. Doppler: Transvalvular velocity was within the normal range. Mild regurgitation. PULMONARY ARTERY: The main pulmonary artery was normal-sized. Systolic pressure was mildly increased. RIGHT ATRIUM: The atrium was normal in size. PERICARDIUM: There was no pericardial effusion. SYSTEMIC VEINS: Inferior vena cava: The vessel was normal in size. Prepared and signed by Vinny Dias [id number]
[2016-11-26] MEDS ORDERED: WARFARIN SOD 4 MG TAB PO SCH (16:00)
[2016-11-26] MEDS: cefTRIAXone INJ 1,000 MG in SODIUM CHLORIDE 0.9% INJ 100 ML IV SCH (16:17)
[2016-11-26] MEDS: AZITHROMYCIN INJ 500 MG in SODIUM CHLOR 0.9% 250 ML INJ 250 ML IV SCH (16:18)
[2016-11-26] MEDS: MONTELUKAST SODIUM 10 MG TAB PO SCH (20:29)
[2016-11-26] MEDS: BENZONATATE 100 MG CAP PO PRN (23:23)
[2016-11-27] VITALS: BP 152/92; PULSE 84; RESP 18; TEMP 97.5; O2SAT 94
[2016-11-27] MEDS: ACETAMINOPHEN/HYDROcodone 325 MG/10 MG TAB PO PRN (03:18)
[2016-11-27] MEDS: RESP: ALBUTEROL 2.5 MG/IPRATROPIUM 0.5 MG NEB (SCH) NEB ×2 (07:17→11:11)
[2016-11-27 07:18] VITALS: O2SAT 97
[2016-11-27 08:07] LABS: INTERNATIONAL NORMALIZED RATIO 3.4 RATIO; PROTHROMBIN TIME - PATIENT 39.4 SEC (9.8-11.6)
[2016-11-27 09:32] VITALS: BP 168/113; PULSE 95; RESP 17; TEMP 96.3; O2SAT 94
[2016-11-27] MEDS: amLODIPine BESYLATE 5 MG TAB PO SCH (09:40)
[2016-11-27] MEDS: predniSONE 20 MG TAB PO SCH (09:40)
[2016-11-27] MEDS: PANTOPRAZOLE SOD 40 MG DELAYED RELEASE TAB PO SCH (09:40)
[2016-11-27] MEDS: guaiFENesin E.R. 600 MG TAB PO SCH (09:40)
[2016-11-27] MEDS: LOSARTAN 50 MG TAB PO SCH (09:40)
[2016-11-27] MEDS: SERTRALINE HCL 100 MG TAB PO SCH (09:40)
[2016-11-27] MEDS: SODIUM CHLORIDE 0.9% FLUSH 5 ML FLUSH FLUSH SCH (09:41)
[2016-11-27] MEDS: BUDESONIDE-FORMOTEROL 160/4.5 MCG INHALER INH SCH (09:41)
[2016-11-27] MEDS ORDERED: PRED10PA PO (10:50)
[2016-11-27] MEDS ORDERED: AZIT500T2 PO (10:50)
[2016-11-27] MEDS ORDERED: CEFT500T3 PO (10:50)
--- NOTE | 2016-11-27 10:51 | HHI.DCPOC ---
Discharge Care Plan Diagnosis: (1) Asthma with acute exacerbation (2) CAP (community acquired pneumonia) Goals to Promote Your Health * To prevent worsening of your condition and complications * To maintain your health at the optimal level Directions to Meet Your Goals Take your medications as prescribed Follow your dietary instruction Follow activity as directed Keep your appointments as scheduled Take your immunizations and boosters as scheduled If your symptoms worsen call your PCP, if no PCP go to Urgent Care Center or Emergency Room Smoking is Dangerous to Your Health. Avoid second hand smoke Call the 24-hour hour crisis hotline for domestic abuse at Laura Agudelo MD Nov 27, 2016 10:51
--- NOTE | 2016-11-27 10:54 | HHI.DS ---
Discharge Summary Admission Date Nov 25, 2016 at 15:07 Discharge Date: Nov 27, 2016 Admitting Diagnosis Asthma exacerbation (1) Asthma with acute exacerbation ICD Code: J45.901 (2) History of pulmonary embolus (PE) ICD Code: Z86.711 (3) CAP (community acquired pneumonia) ICD Code: J18.9 Procedures none Brief History - From Admission Patient is a 66-year-old female with a history of asthma and recurrent bronchitis who came to the emergency room after about 8 days of increasing dyspnea on exertion and shortness of breath and productive cough. Patient was seen in outpatient urgent care a few days ago and given cefuroxime, steroids and nebulizer treatments. Patient noted that she continued to get worse and came to the emergency room for the same. The patient was given IV antibiotics as well as bronchodilators and felt better. Chest x-ray was done and does show some bilateral patchy although worse on the left side infiltrates concerning for pneumonia on my review. For these reasons the patient has been recommended for admission CBC/BMP: 11/26/16 0730 11/25/16 0821 Significant Findings Last Impressions CT Angiography 11/24/16 1743 Signed Impressions: Service Date/Time: Thursday, November 24, 2016 18:22 - CONCLUSION: 1. Very prominent pulmonary arteries centrally suggesting pulmonary hypertension. 2. Minimal patchy air space disease in both lungs. Jc Alberts MD FACR Chest X-Ray 11/24/16 1645 Signed Impressions: Service Date/Time: Thursday, November 24, 2016 16:52 - CONCLUSION: No acute disease. Jc Alberts MD FACR Laboratory Tests Test 11/24/16 11/24/16 11/25/16 11/26/16 17:00 22:32 08:21 07:30 White Blood Count 19.5 TH/MM3 19.7 TH/MM3 23.1 TH/MM3 (4.0-11.0) (4.0-11.0) (4.0-11.0) Neutrophils (%) (Auto) 90.5 % 91.6 % 89.1 % (16.0-70.0) (16.0-70.0) (16.0-70.0) Lymphocytes (%) (Auto) 5.7 % 5.9 % 6.7 % (9.0-44.0) (9.0-44.0) (9.0-44.0) Neutrophils # (Auto) 17.6 TH/MM3 18.0 TH/MM3 20.6 TH/MM3 (1.8-7.7) (1.8-7.7) (1.8-7.7) Band Neutrophils % 20 % (0-6) 13 % (0-6) 11 % (0-6) Lymphocytes % 7 % (9-44) 5 % (9-44) 5 % (9-44) Neutrophils # (Manual) 17.4 TH/MM3 18.5 TH/MM3 21.0 TH/MM3 (1.8-7.7) (1.8-7.7) (1.8-7.7) Prothrombin Time 23.4 SEC 22.2 SEC 28.7 SEC (9.8-11.6) (9.8-11.6) (9.8-11.6) Activated Partial 42.9 SEC Thromboplast Time (24.3-30.1) Estimat Glomerular Filtration 60 ML/MIN (>89) 67 ML/MIN (>89) Rate Random Glucose 124 MG/DL 144 MG/DL (74-106) (74-106) Urine Occult Blood SMALL (NEG) Neutrophils % (Manual) 81 % (16-70) 78 % (16-70) Basophilic Stippling FAINT (NORMAL) Albumin 3.3 GM/DL (3.4-5.0) Metamyelocytes 2 % (0-1) Test 11/27/16 07:40 Prothrombin Time 39.4 SEC (9.8-11.6) PE at Discharge GENERAL: This is a well-nourished, well-developed patient, in no apparent distress. CARDIOVASCULAR: Regular rate and rhythm without murmurs, gallops, or rubs. RESPIRATORY: Decreased air flow bilaterally with scattered wheezes GASTROINTESTINAL: Abdomen soft, non-tender, nondistended. Normal active bowel sounds MUSCULOSKELETAL: Extremities without clubbing, cyanosis, or edema. NEURO: Alert & Oriented x4 to person, place, time, situation. Moves all ext x4 Pt update on day of discharge Patient seen today in follow-up for exacerbation of asthma along with many apart pneumonia. Doing well with antibiotics. No new complaints overnight. Echocardiogram results discussed with patient. Patient also reports outpatient nodule on CT. Findings will need to be followed by her primary care doctor. She is aware. Patient's potassium has been replaced. Hospital Course Patient is a 66-year-old with known history of asthma with acute exacerbation of same as well his pneumonia, community-acquired. Patient will antibiotics, steroids and bronchodilators. Echocardiogram was done due to concern for congestion from cardiac etiology. No evidence of cardiac congestion was found. Patient did well and was discharged home Pt Condition on Discharge: Good Discharge Disposition: Discharge Home Discharge Time: > 30 minutes Discharge Instructions DIET: Follow Instructions for: As Tolerated, No Restrictions Activities you can perform: Regular-No Restrictions Follow up Referrals: PCP Follow-up - 3 Weeks New Medications: Azithromycin (Azithromycin) 500 Mg Tab 500 MG PO DAILY Infection #5 Ref 0 TAB Cefuroxime (Ceftin) 500 Mg Tab 500 MG PO BID Infection #10 Ref 0 TAB Prednisone (21) 10 mg tab Dose Pack (Prednisone (21) 10 mg tab Dose Pack) 10 Mg Pack 10 MG PO DIRECTED Inflammation #1 Ref 0 DSPK Continued Medications: Albuterol 18 GM Inh (Ventolin Hfa 18 GM Inh) 90 Mcg/Act Aer 2 PUFF INH Q4-6H PRN SHORTNESS OF BREATH #1 Ref 0 INHALER Amlodipine (Amlodipine) 5 Mg Tab 5 MG PO DAILY Blood Pressure Management #30 Ref 0 TAB Benzonatate (Benzonatate) 200 Mg Cap 200 MG PO TID PRN COUGH Ref 0 CAP Cefuroxime (Cefuroxime) 500 Mg Tab 500 MG PO BID Infection Ref 0 TAB Fluticasone-Salmeterol Inh (Advair Diskus Inh) 100-50 Mcg/Blist Aer 1 PUFF INH BID Rinse mouth after use. Asthma Management #1 Ref 0 INHALER Ipratropium-Albuterol Neb (Duoneb) 0.5-2.5 Mg/3 Ml Neb 1 NEBULE INH Q4HR NEB SHORTNESS OF BREATH #120 Ref 0 NEBULE Losartan (Losartan) 50 Mg Tab 50 MG PO DAILY Blood Pressure Management #30 Ref 0 TAB Methylprednisolone Dosepak (Medrol Dosepak) 4 Mg Dspk 4 MG PO DIRECTED Per Pharmacist direction #1 Ref 0 DSPK Montelukast (Montelukast) 10 Mg Tab 10 MG PO HS #30 Ref 0 TAB Pantoprazole (Pantoprazole) 40 Mg Tab 40 MG PO BID Reflux #30 Ref 0 TAB Sertraline (Sertraline) 100 Mg Tab 100 MG PO DAILY #30 Ref 0 TAB Vitamins C & E (Vitamin C 500-400 mg-Unit) 1 Cap Cap 1 CAP PO BID Warfarin (Warfarin) 4 Mg Tab 4 MG PO DAILY Blood Clot Prevention #30 Ref 0 TAB Laura Agudelo MD Nov 27, 2016 10:54
== END 2016-11-27 11:49 | disposition home or self-care (01) | DRG 194 ==
LOC: PHED 16:27 → PHEDA 19:18 → PH3A 23:10 → OBSVTOIN 11-25 15:07
PROVIDERS: ADMIT Hospitalist; ATTEND Hospitalist
DX: J18.9 Pneumonia, unspecified organism (principal); J45.41 Moderate persistent asthma with (acute) exacerbation; D68.51 Activated protein C resistance; I10 Essential (primary) hypertension; Z79.01 Long term (current) use of anticoagulants; Z80.1 Family history of malignant neoplasm of trachea, bronchus and lung; Z80.3 Family history of malignant neoplasm of breast; Z86.711 Personal history of pulmonary embolism; Z88.2 Allergy status to sulfonamides; Z88.5 Allergy status to narcotic agent
CPT/HCPCS: 71010; 71275; 80053; 81001; 85007; 85027; 85610; 85730; 87040; 87804; 93005; 93306; 94620; 94640; 94664; 96361; 96365; 96368; 96375; G0378; J0360; J0456; J0696; J2920; J2930; J3475; J7030; J7050; J7512; J7613; Q9967